=== PATIENT | male | born 1940 | race Caucasian/White ===

== ENCOUNTER 2020-11-25 17:11 | Emergency (ER) | payer OTHER ==
[~2020-11-25] VITALS: Ht 170.2 cm; Wt 99.8 kg
[~2020-11-25 17:11] MED LIST: CLONIDINE0.1 PO
[2020-11-25] MEDS ORDERED: HYDROCHLOROTHIAZIDE (17:33)
[2020-11-25] MEDS ORDERED: CARVEDILOL (17:33)
[2020-11-25] MEDS ORDERED: PROPAFENONE (17:33)
[2020-11-25] MEDS ORDERED: FLOMAX (17:34)
[2020-11-25] MEDS ORDERED: FUROSEMIDE (17:34)
[2020-11-25] MEDS ORDERED: CLONAZEPAM 0.50.5 M1 (17:37)
[2020-11-25] MEDS ORDERED: PARKINSON MED (17:38)
[2020-11-25 18:37] VITALS: BP 145/85
== END 2020-11-25 18:37 | disposition home or self-care (01) ==
LOC: M.ERS 17:11
DX: S00.12XA Contusion of left eyelid and periocular area, initial encounter (principal); G89.29 Other chronic pain; M25.511 Pain in right shoulder; I10 Essential (primary) hypertension; I48.91 Unspecified atrial fibrillation; E11.9 Type 2 diabetes mellitus without complications; Z79.899 Other long term (current) drug therapy; Z88.1 Allergy status to other antibiotic agents; Z88.8 Allergy status to other drugs, medicaments and biological substances; W19.XXXA Unspecified fall, initial encounter; Y93.89 Activity, other specified; Y92.89 Other specified places as the place of occurrence of the external cause; Y99.8 Other external cause status

== ENCOUNTER 2021-03-12 23:28 | Inpatient (IN) | payer OTHER ==
[~2021-03-12] VITALS: Ht 170.2 cm; Wt 113.6 kg
[~2021-03-12 23:28] MED LIST changes: +CARVEDILOL; +CLONAZEPAM 0.50.5 M1; +FLOMAX; +FUROSEMIDE; +HYDROCHLOROTHIAZIDE; +PARKINSON MED; +PROPAFENONE
[2021-03-12 23:31] VITALS: BP 126/44
[2021-03-12 23:55] LABS: ABSOLUTE BASOPHILS 0.1 thou/uL (0.0-0.2); ABSOLUTE EOSINOPHILS 0.1 thou/uL (0.0-0.7); ABSOLUTE LYMPHOCYTES 1.9 thou/uL (0.8-5.3); ABSOLUTE MONOCYTES 0.9 thou/uL (0.0-1.2); ABSOLUTE NEUTROPHILS 4.6 thou/uL (1.6-8.1); BASOPHILS 0.7 %; EOSINOPHILS 1.7 %; HEMATOCRIT 42.2 % (42.0-52.0); HEMOGLOBIN 13.1 gm/dL (14.0-18.0); LYMPHOCYTES 25.2 %; MCH 24.8 pg (26.0-34.0); MCHC 31.1 g/dL (28.0-37.0); MCV 79.8 fL (80.0-100.0); MONOCYTES 12.1 %; MPV 8.5 fl. (7.2-11.1); NUCLEATED RBCS 0 /100WBC; PLATELET COUNT* 206 thou/uL (150-400); POLYS 60.3 %; RBC 5.28 mil/uL (4.50-6.00); RDW-CV 18.3 % (10.5-14.5); WBC 7.6 thou/uL (4.0-11.0)
[2021-03-13] MEDS ORDERED: BIDIL TABLET1 EACH PO (00:02)
[2021-03-13] MEDS ORDERED: MIRAPEX 0.250.25 M1 PO (00:04)
[2021-03-13] MEDS ORDERED: VENLAFAXINE HCL75 M2 PO (00:04)
--- NOTE | 2021-03-13 00:05 | NUR ---
PATIENT'S STATES SHE GAVE HIM 30 UNITS OF LANTUS AND 25 UNITS OF NOVOLOG AT DINNER TIME. PRIOR TO CALLING EMS NOTED PATIENT BECAME ALTERED. TRIED TO GIVE PATIENT ORAL GLUCOSE WITHOUT SUCCESS. NOTED PATIENT LOST CONTROL OF BLADDER AND LOST VISION PRIOR TO CALLING EMS.
[2021-03-13 00:15] LABS: CALCIUM 7.6 mg/dL (8.5-10.1); CREATININE 1.8 mg/dL (0.6-1.3)
[2021-03-13 00:26] LABS: ALBUMIN 2.6 g/dL (3.4-5.0); MAGNESIUM 2.1 mg/dL (1.8-2.4); TOTAL BILIRUBIN 0.4 mg/dL (<0.1-1.0); TOTAL PROTEIN 6.3 g/dL (6.4-8.2)
[2021-03-13 00:33] LABS: BE -0.9 mmol/L (-2 to +3)
[2021-03-13 00:35] LABS: INFLUENZA A ANTIGEN Negative (Negative); INFLUENZA B ANTIGEN Negative (Negative)
[2021-03-13 00:35] LABS: pH 7.267 (7.340-7.450)
[2021-03-13 00:36] LABS: PCO2 61.4 mmHg (35.0-45.0); PO2 246.9 mmHg (75.0-100.0)
[2021-03-13 06:38] VITALS: BP 135/76
[2021-03-13 10:30] VITALS: BP 149/83
--- NOTE | 2021-03-13 10:37 | EKG ---
[place] [address] ELECTROCARDIOGRAM REPORT Name: BREANA ESTRADA Room: [place] [address] ADM IN M.R.#: [id number] Admission: 03/13/21 Attend Phys: Tony Bro Discharge: Date of : 44 Date of Service: 03/12/21 2345 Report #: [id number] THIS REPORT FOR: //name// [facility] ED Test Date: 2021-03-12 Test Time: 23:45:07 Pat Name: BREANA ESTRADA Department: Room: [facility] Gender: M Staff Technologist: JUAN : 1940 Requested By: Danna Brown Order Number: [id number] MD: Davin Valenzuela Measurements Intervals [place] Rate: 66 P: 36 OH: 238 QRS: -71 QRSD: 122 T: 91 QT: 446 QTc: 468 Interpretive Statements Sinus rhythm Prolonged OH interval Nonspecific IVCD with LAD LVH with secondary repolarization abnormality No previous ECG available for comparison Electronically Signed On 03-13-2021 10:37:31 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
[2021-03-13 11:09] LABS: BE -1.4 mmol/L (-2 to +3); PO2 91.6 mmHg (75.0-100.0)
[2021-03-13 11:13] LABS: PCO2 64.5 mmHg (35.0-45.0)
[2021-03-13 14:30] VITALS: BP 147/90
--- NOTE | 2021-03-13 14:42 | NUR ---
CM ASSESSMENT ASSESSMENT COMPLETED WITH PT (LYLY ESTRADA - [phone]). PT RESIDES WITH IN APARTMENT IN THE [facility]. PT USES A CANE AND PT COMPLETES ADLS FOR DRESSING AND BATHING. PT HAS NO HX OF SNF OR REHAB. PT HAD PAST HH WITH UNKNOWN AGENCY. PT WAS ON HOSPICE THREE YEARS AGO. PT'S STATES THE REASON FOR HOSPICE WAS NOT CLEAR AND HOSPICE WAS NOT NEEDED. PT REPORTS PT PLAN TO DC HOME WHEN MED CLEAR. CM TO FOLLOW.
[2021-03-13 15:26] LABS: URINE BILIRUBIN NEGATIVE (Negative); URINE BLOOD NEGATIVE (Negative); URINE CLARITY CLEAR; URINE COLOR YELLOW; URINE GLUCOSE-RANDOM NEGATIVE (Negative); URINE KETONES NEGATIVE (Negative); URINE LEUKOCYTES NEGATIVE (Negative); URINE NITRITE NEGATIVE (Negative); URINE PROTEIN 2+ (Negative); URINE SPECIFIC GRAVITY 1.025 (1.005-1.030); URINE UROBILINOGEN 0.2 E.U./dl (0.2-1.0)
[2021-03-13 15:37] LABS: BACTERIA 1-9 Few /HPF (None Seen); CRYSTALS None Seen /LPF (None Seen); HYALINE CASTS 0-3 Few /LPF (None Seen); SQUAMOUS 4-10 Moderate /LPF (0-3); URINE RBC 0-2 Rare /HPF (0-2); URINE WBC 0-5 Rare /HPF (0-5)
[2021-03-13 15:59] LABS: CREATININE 1.9 mg/dL (0.6-1.3); POTASSIUM 4.5 mmol/L (3.5-5.1)
[2021-03-13 16:02] LABS: MAGNESIUM 2.2 mg/dL (1.8-2.4); PHOSPHORUS* 5.4 mg/dL (2.5-4.9)
--- NOTE | 2021-03-13 16:04 | 2DMMODE ---
[place] [address] 2 D/M-MODE ECHOCARDIOGRAM Name: BREANA ESTRADA Room: [place] [address] ADM IN .R.#: [id number] Admission: 03/13/21 Attend Phys: Tony Bro Discharge: Date of : 44 Date of Service: 03/13/21 1604 Report #: [id number] THIS REPORT FOR: cc: FAM - No family physician/PCP FAM - No family physician/PCP Davin Valenzuela MD [facility] ~ ADDENDUM APPROVED REPORT Study performed: 03/13/2021 15:06:19 EXAM: Comprehensive 2D, Doppler, and color-flow Echocardiogram Patient Location: In-Patient Room #: er Status: routine BSA: 2.22 HR: 82 bpm BP: 133/78 mmHg Rhythm: NSR Other Information Study Quality: Good Indications Dyspnea 2D Dimensions IVSd: 12.22 (7-11mm) LVOT Diam: 22.41 (18-24mm) LVDd: 55.25 mm PWd: 11.06 (7-11mm) Ascending Ao: 34.17 (22-36mm) LVDs: 44.04 (25-40mm) Aortic Root: 34.77 mm Volumes Left Atrial Volume (Systole) LA ESV Index: 42.70 mL/m2 Aortic Valve AoV Peak Anthony.: 1.31 m/s AO Peak Gr.: 6.84 mmHg LVOT Max P.00 mmHg AO Mean Gr.: 3.56 mmHg LVOT Mean P.05 mmHg LVOT Max V: 0.71 m/s AO V2 VTI: 26.38 cm LVOT Mean V: 0.48 m/s ADAM (VTI): 2.44 cm2 LVOT V1 VTI: 16.32 cm AI [place]: 1.94 m/s2 [place] [address] 2 D/M-MODE ECHOCARDIOGRAM Name: BREANA ESTRADA Room: [address] IN .R.#: [id number] Admission: 03/13/21 Attend Phys: Tony Bro Discharge: Date of : 44 Date of Service: 03/13/21 1604 Report #: [id number] AI PHT: 526.07 ms Mitral Valve E/A Ratio: 1.28 MV Decel. Time: 209.27 ms MV E Max Anthony.: 0.69 m/s MV PHT: 60.69 ms MVA (PHT): 3.63 cm2 TDI E/Lateral E': 6.90 E/Medial E': 11.50 Medial E' Anthony.: 0.06 m/s Lateral E' Anthony.: 0.10 m/s Pulmonary Valve PV Peak Anthony.: 0.67 m/s PV Peak Gr.: 1.79 mmHg Tricuspid Valve RAP Estimate: 10.00 mmHg TR Peak Gr.: 40.60 mmHg RVSP: 50.00 mmHg PA Pressure: 50.00 mmHg Left Ventricle The left ventricle is normal size. There is global hypokinesis of the left ventricle. Mild concentric left ventricular hypertrophy. Left ventricular systolic function is moderately decreased. LVEF is 30-35%. The left ventricular diastolic function is normal. Right Ventricle Right ventricle is dilated. The right ventricular systolic function is normal. Atria Left atrium is moderately dilated. Right atrium is dilated. Aortic Valve The aortic valve is normal in structure. Mild aortic regurgitation. There is no aortic valvular stenosis. Mitral Valve The mitral valve is normal in structure. Trace mitral regurgitation. No evidence of mitral valve stenosis. Tricuspid Valve The tricuspid valve is normal in structure. Mild tricuspid regurgitation. estimated pa pressure 50 [place] [address] 2 D/M-MODE ECHOCARDIOGRAM Name: NATALIEBEVERLYO Clarisse Room: [address] IN [facility]#: [id number] Admission: 03/13/21 Attend Phys: Tony Bro Discharge: Date of : 44 Date of Service: 03/13/21 1604 Report #: [id number] Pulmonic Valve The pulmonary valve is normal in structure. Mild pulmonic regurgitation. Great Vessels The aortic root is normal in size. The IVC is dilated. Pericardium There is no pericardial effusion. <Conclusion> Mild concentric left ventricular hypertrophy. LVEF is 30-35%. There is global hypokinesis of the left ventricle. Left atrium is moderately dilated. Mild aortic regurgitation. Right ventricle is dilated. Mild tricuspid regurgitation. estimated pa pressure 50 mm Hg <ELECTRONICALLY SIGNED> By: Davin Valenzuela MD, FACC 03/13/21 1604 1604 1604 Davin Valenzuela MD, FACC /INF
[2021-03-13 21:38] VITALS: BP 145/64
[2021-03-13 23:00] VITALS: BP 134/78
[2021-03-14 00:19] VITALS: BP 126/74
[2021-03-14 05:07] VITALS: BP 119/62
[2021-03-14 05:27] LABS: HEMATOCRIT 43.3 % (42.0-52.0); HEMOGLOBIN 13.1 gm/dL (14.0-18.0); MCH 24.4 pg (26.0-34.0); MCHC 30.2 g/dL (28.0-37.0); MCV 80.9 fL (80.0-100.0); MPV 8.7 fl. (7.2-11.1); NUCLEATED RBCS 0 /100WBC; PLATELET COUNT* 207 thou/uL (150-400); RBC 5.35 mil/uL (4.50-6.00); RDW-CV 18.2 % (10.5-14.5); WBC 7.9 thou/uL (4.0-11.0)
[2021-03-14 06:04] LABS: ALBUMIN 2.5 g/dL (3.4-5.0); CALCIUM 7.7 mg/dL (8.5-10.1); CREATININE 1.8 mg/dL (0.6-1.3); MAGNESIUM 2.2 mg/dL (1.8-2.4); POTASSIUM 5.2 mmol/L (3.5-5.1); TOTAL BILIRUBIN 0.3 mg/dL (<0.1-1.0); TOTAL PROTEIN 6.3 g/dL (6.4-8.2)
--- NOTE | 2021-03-14 07:30 | NUR ---
PATIENT ARRIVED ON FLOOR FROM ER AT ABOUT 2200. PATIENT ADMISSION HISTORY AND ASSESSMENT WAS COMPLETED CHARTED. D5 NS CONTINUES AT 50 ML/HR. IV ANTIBIOTICS WERE GIVEN ORDERED. PATIENT ONLY WORE BIPAP FOR A COUPLE HOURS KEPT TAKING OFF WAS PLACED BACK ON OXYGEN AT 10L [facility]. WILL CONTINUE TO MONITOR.
[2021-03-14 08:00] VITALS: BP 153/76
[2021-03-14 08:08] LABS: ABSOLUTE EOSINOPHILS 0.1 thou/uL (0.0-0.7); ABSOLUTE LYMPHOCYTES 0.3 thou/uL (0.8-5.3); ABSOLUTE MONOCYTES 0.1 thou/uL (0.0-1.2); ABSOLUTE NEUTROPHILS 7.4 thou/uL (1.6-8.1); ANISOCYTOSIS 1+; HYPOCHROMASIA 1+; PLATELET ESTIMATE ADEQUATE
[2021-03-14 08:29] LABS: pH 7.247 (7.340-7.450)
[2021-03-14 08:41] LABS: BE -0.7 mmol/L (-2 to +3); PO2 123.2 mmHg (75.0-100.0)
[2021-03-14 08:52] LABS: PCO2 58.7 mmHg (35.0-45.0); pH 7.284 (7.340-7.450)
[2021-03-14 13:29] VITALS: BP 136/71
[2021-03-14 16:48] LABS: ALBUMIN 2.6 g/dL (3.4-5.0); CALCIUM 7.8 mg/dL (8.5-10.1); CREATININE 1.8 mg/dL (0.6-1.3); POTASSIUM 4.8 mmol/L (3.5-5.1); TOTAL BILIRUBIN 0.3 mg/dL (<0.1-1.0); TOTAL PROTEIN 6.5 g/dL (6.4-8.2)
[2021-03-14 17:03] VITALS: BP 130/69
[2021-03-14 19:25] VITALS: BP 145/87
[2021-03-15 00:50] VITALS: BP 136/60
[2021-03-15 04:00] VITALS: BP 128/55
[2021-03-15 05:29] LABS: ABSOLUTE LYMPHOCYTES 0.8 thou/uL (0.8-5.3); ABSOLUTE MONOCYTES 0.2 thou/uL (0.0-1.2); ABSOLUTE NEUTROPHILS 8.6 thou/uL (1.6-8.1); BASOPHILS 0.1 %; HEMATOCRIT 41.2 % (42.0-52.0); HEMOGLOBIN 12.8 gm/dL (14.0-18.0); LYMPHOCYTES 8.1 %; MCH 24.6 pg (26.0-34.0); MCHC 30.9 g/dL (28.0-37.0); MCV 79.6 fL (80.0-100.0); MONOCYTES 2.2 %; MPV 8.7 fl. (7.2-11.1); NUCLEATED RBCS 0 /100WBC; PLATELET COUNT* 201 thou/uL (150-400); POLYS 89.6 %; RBC 5.18 mil/uL (4.50-6.00); RDW-CV 17.6 % (10.5-14.5); WBC 9.6 thou/uL (4.0-11.0)
[2021-03-15 06:15] LABS: ALBUMIN 2.7 g/dL (3.4-5.0); CALCIUM 8.1 mg/dL (8.5-10.1); CREATININE 1.7 mg/dL (0.6-1.3); MAGNESIUM 2.2 mg/dL (1.8-2.4); POTASSIUM 5.1 mmol/L (3.5-5.1); TOTAL BILIRUBIN 0.4 mg/dL (<0.1-1.0); TOTAL PROTEIN 6.5 g/dL (6.4-8.2)
[2021-03-15 08:25] VITALS: BP 166/85
[2021-03-15] MEDS ORDERED: LISINOPRIL5 MG PO (10:06)
[2021-03-15] MEDS ORDERED: FLOMAX0.4 MG PO (10:06)
[2021-03-15] MEDS ORDERED: PREDNISONE 10 M10 MG PO (10:06)
[2021-03-15] MEDS ORDERED: CARVEDILOL3.125 MG PO (10:06)
[2021-03-15] MEDS ORDERED: LASIX 40 MG TAB40 MG PO (10:06)
[2021-03-15] MEDS ORDERED: DOXYCYCLINE 10100 MG PO (10:06)
[2021-03-15 11:52] VITALS: BP 132/89
--- NOTE | 2021-03-15 13:48 | NUR ---
Hospitalist reports that the Pulmonolgist is recommeding a Trilogy. Hospitalist signed Script and this was faxed to [facility]. Holly from [facility] called back to report further documentation needed as to why pt needs the Trilogy. Pulmonolgist consult is still in draft and no progress notes available today. Waiting to see if further documentation is written by doctor's for need for Trilogy and will fax to [facility]. Met with pt to discuss need for Trilogy and he is agreeable. CM to continue to follow for discharge today.
[2021-03-15 15:34] VITALS: BP 159/96
[2021-03-15 19:50] VITALS: BP 127/64
--- NOTE | 2021-03-15 20:02 | CON ---
[address] [address] CONSULTATION Name: BREANA ESTRADA Room: [address] IN M.R.#: [id number] Admission: 03/13/21 Attend Phys: Kwan Spencer Discharge: Date of : 44 Report #: [id number] THIS REPORT FOR: cc: ASHOK - No family physician/PCP FAM - No family physician/PCP Denny Bowie MD ~ DATE OF CONSULTATION: 03/13/2021 INDICATION FOR CONSULTATION: Acute hypercarbic respiratory failure. HISTORY OF PRESENT ILLNESS: This is a 81-year-old gentleman. It appears that he has a previous history of asthma as well as obstructive sleep apnea and atrial fibrillation. 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 He is a limited historian. He did give me a history consistent with asthma as well as obstructive sleep apnea, but did not state that he has either one of these two diseases. He also has diabetes. He is now admitted with shortness of breath. He also initially was hypoglycemic with a blood glucose of only 36. He had altered mental status as well. He had to be placed on a BiPAP. He has been maintaining O2 saturation with 50% BiPAP; however, his pH has remained low at 7.247 and pCO2 of 65. With 50% BiPAP in place, he still had adequate O2 saturation. He has now been placed on a high-flow nasal cannula. So far, he is awake and he is maintaining O2 saturation on this. He only has a small amount of sputum production, clear to white clear nasal discharge, which is longstanding. He does have swelling of lower extremities. He does have some leg pain as well. REVIEW OF SYSTEMS: For 12 points is negative except as mentioned above. PAST MEDICAL HISTORY: He gives a history consistent with bronchial asthma including treatment for bronchial asthma, he did not, however, state that he has asthma; he also states that he has used a CPAP or BiPAP at home, but did not state that he has sleep apnea; hypertension; atrial fibrillation; diabetes. The patient stated that he had anterior abdominal wall bleed because of which his anticoagulation was discontinued in the past, although he has AFib. His echo now shows a left ventricular ejection fraction of only 30-35% with a pulmonary artery systolic of 50. It is not known to me as to whether this congestive heart failure is new or old. I do not have his baseline creatinine available. SOCIAL HISTORY: The patient states that he smoked when he was in his teens. Otherwise, he has been a lifetime nonsmoker. No known history of heavy alcohol use or illegal drug use. CURRENT MEDICATIONS: [place] [employer] [address] CONSULTATION Name: BREANA ESTRADA Room: [address] IN .R.#: [id number] Admission: 03/13/21 Attend Phys: Kwan Spencer Discharge: Date of : 44 Report #: [id number] HOME MEDICATIONS: List in [facility] reviewed. Also, he says that he takes insulin at home. VACCINATION HISTORY: He received 2 doses of COVID-19 vaccine, did not receive the booster. This was back in May. ALLERGIES: METFORMIN, BENICAR AND CELEBREX ARE MENTIONED ALLERGIES. FAMILY HISTORY: No pertinent family history. PHYSICAL EXAMINATION: GENERAL: He is alert, awake and oriented, provides limited history. VITAL SIGNS: In the records reviewed. NECK: Does not show raised JVP. CHEST: Breath sounds bilaterally equal, decreased expirations, prolonged expiratory wheezes. HEART: Irregular. No murmur. ABDOMEN: Soft and nontender. EXTREMITIES: Lower extremities, 2+ edema, no calf tenderness. Chest x-ray, CT chest, CT head and lab work in [facility] reviewed. ASSESSMENT AND PLAN: 1. Acute hypoxemic and hypercarbic respiratory failure. His history is consistent with long history of bronchial asthma as well as obstructive sleep apnea, although he did not state either one of these diagnoses. He also is in heart failure and renal failure at this point, not known to me as to whether these are old or new. For now, recommend keeping him on a BiPAP while asleep and use BiPAP as needed while awake. I understand the patient has had trouble with BiPAP or CPAP at home in the past. 2. Bronchial asthma exacerbation. We will start him on Solu-Medrol as well as nebulized bronchodilators. 3. Systolic congestive heart failure, acute versus chronic with renal failure, creatinine 1.8-1.9, unknown whether new or old. He is total body fluid overloaded. He currently has IV fluids running at 50. If the creatinine elevation is new and fluids are needed to maintain renal perfusion, then it appears okay to continue for now. Otherwise, considering that he is overall total body fluid overloaded, may consider discontinuing. May benefit from a Cardiology opinion and may need a Nephrology opinion as well if he fails to improve. I will do a renal ultrasound to rule out urinary tract obstruction. 4. Diabetes with hypoglycemia and hyperglycemia. Blood glucose management deferred to the primary service. 5. Pulmonary infiltrates. Agree with doxycycline and ceftriaxone. We will [address] [place] [address] CONSULTATION Name: BREANA ESTRADA Room: [address] IN [facility]#: [id number] Admission: 03/13/21 Attend Phys: Kwan Spencer Discharge: Date of : 44 Report #: [id number] send off some cultures. 6. Evaluation for thromboembolic phenomena/pulmonary hypertension. Pulmonary hypertension is likely secondary to congestive heart failure. Also, he may have respiratory disease as well as above. His D-dimer is only 0.63. Therefore, my suspicion of pulmonary emboli is low and I am not investigating this at this time; however, I would want to do venous Dopplers. 7. Deep venous thrombosis prophylaxis/history of atrial fibrillation. He reports anterior abdominal wall bleeding in the past with anticoagulation. In the short run, it appears that he would benefit from anticoagulation at least while he is in the hospital here. Subcutaneous heparin or Lovenox may in fact have a higher risk of causing a recurrence of anterior abdominal wall bleeding compared with Eliquis. Therefore, if all on the case agree, then I would be inclined to start him on low-dose Eliquis. 8. Gastrointestinal prophylaxis, Protonix. 9. Clostridium difficile prophylaxis, Lactinex. Thanks for this consultation. <ELECTRONICALLY SIGNED> By: Denny Bowie MD 03/15/212001 1746 2209Aradha Bowie MD /nt
[2021-03-16] VITALS: BP 140/79
--- NOTE | 2021-03-16 03:58 | NUR ---
ASSUMED CARE OF PT A 1899. PT IS ALERT AND ORIENTED. VSS. PERRLA. NO COMPLAINS OF PAIN. PT IS IN SINUS RYHTHM ON THE MONITOR. PT IS SLEEPING QUIETLY IN BED. RESPIRATIONS ARE EVEN AND NONLABORED. WILL CONTINUE TO MONITOR PT.
[2021-03-16 04:00] VITALS: BP 139/66
[2021-03-16 04:59] LABS: ALBUMIN 2.8 g/dL (3.4-5.0); ALKALINE PHOSPHATASE 92 U/L (46-116); ANION GAP 6 mmol/L (7-16); BUN 43 mg/dL (7-18); CALCIUM 8.6 mg/dL (8.5-10.1); CHLORIDE 99 mmol/L (98-107); CHOLESTEROL 98 mg/dL (<200); CO2 33 mmol/L (21-32); CREATININE 1.7 mg/dL (0.6-1.3); GLUCOSE 196 mg/dL (70-99); HDL CHOLESTEROL 57 mg/dL (>40); LDL CHOLESTEROL 26 mg/dL (<100); MAGNESIUM 2.2 mg/dL (1.8-2.4); POTASSIUM 4.4 mmol/L (3.5-5.1); SGOT 50 U/L (15-37); SGPT 59 U/L (30-65); SODIUM 138 mmol/L (136-145); TC:HDL 1.7 Ratio (Not establshd); TOTAL BILIRUBIN 0.8 mg/dL (<0.1-1.0); TOTAL PROTEIN 6.6 g/dL (6.4-8.2); TRIGLYCERIDE 75 mg/dL (<150); VLDL 15 mg/dL (<40)
[2021-03-16 05:08] LABS: SERUM ASSESSMENT CLEAR
[2021-03-16 06:53] LABS: ABSOLUTE LYMPHOCYTES 0.8 thou/uL (0.8-5.3); ABSOLUTE MONOCYTES 0.2 thou/uL (0.0-1.2); ABSOLUTE NEUTROPHILS 8.1 thou/uL (1.6-8.1); EOSINOPHILS 0.1 %; HEMATOCRIT 42.9 % (42.0-52.0); HEMOGLOBIN 13.3 gm/dL (14.0-18.0); MCH 24.5 pg (26.0-34.0); MCHC 31.1 g/dL (28.0-37.0); MCV 78.8 fL (80.0-100.0); MONOCYTES 2.4 %; MPV 9.2 fl. (7.2-11.1); NUCLEATED RBCS 0 /100WBC; PLATELET COUNT* 212 thou/uL (150-400); POLYS 88.5 %; RBC 5.45 mil/uL (4.50-6.00); RDW-CV 18.1 % (10.5-14.5); WBC 9.1 thou/uL (4.0-11.0)
[2021-03-16 08:22] LABS: pH 7.404 (7.340-7.450)
[2021-03-16 08:32] LABS: PCO2 52.9 mmHg (35.0-45.0)
[2021-03-16 08:33] LABS: PO2 58.5 mmHg (75.0-100.0)
[2021-03-16 08:37] VITALS: BP 169/96
[2021-03-16 13:39] VITALS: BP 169/96
[2021-03-16 13:53] VITALS: BP 158/88
--- NOTE | 2021-03-16 14:38 | CON ---
[address] [address] CONSULTATION Name: BREANA ESTRADA Room: [address] IN M.R.#: [id number] Admission: 03/13/21 Attend Phys: Kwan Spencer Discharge: Date of : 44 Report #: [id number] THIS REPORT FOR: cc: ASHOK - No family physician/PCP FAM - No family physician/PCP Davin Valenzuela MD [facility] ~ cc: Bharat Rutherford MD DATE OF CONSULTATION: 03/15/2021 CARDIOLOGY CONSULTATION HISTORY OF PRESENT ILLNESS: The patient is a 81-year-old male who I was asked to see in the hospital today because of shortness of breath. The patient states that he has seen a fast food manager in the past because of an irregular heartbeat. He is not very active this time and uses a cane. He has fallen in the past because of poor balance. He has never been admitted here to [facility] in the past. He was brought to the Emergency Room 2 nights ago by ambulance. His called EMS because he was short of breath. Apparently, his blood sugar was only 36. The patient was confused and was placed on BiPAP. He apparently did take his insulin earlier that evening. He did complain of weakness. He apparently does have a history of atrial fibrillation. He had been on blood thinners in the past, but was stopped because of bleeding. Cardiology consultation was requested because of his history of heart disease. He denies the history of chest pain. He has been short of breath recently and cough. He does have occasional lower extremity edema. He denies any recent syncope, fever. PAST MEDICAL HISTORY: He has had previous foot surgery, hernia repair, vasectomy. He has a history of hypertension, diabetes, Parkinson's disease. MEDICATIONS: On admission, carvedilol, hydrochlorothiazide, Flomax, clonazepam, he is on Parkinson medication, Imdur, Mirapex, venlafaxine. He is no longer on Lasix. ALLERGIES: HE HAS INTOLERANCE TO METFORMIN AND BENICAR. FAMILY HISTORY: Negative for heart disease. SOCIAL HISTORY: He is . 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 No smoking, alcohol abuse. REVIEW OF SYSTEMS: No history of stroke. He does have asthma and uses inhaler. He is on oxygen at home. No history of GI bleeding, liver disease, kidney disease, cancer, psychiatric illness, [place] [address] CONSULTATION Name: NATALIEBREANA S Room: [address]#: [id number] Admission: 03/13/21 Attend Phys: Kwan Spencer Discharge: Date of : 44 Report #: [id number] PHYSICAL EXAMINATION: GENERAL: Revealed an overweight male, lying in bed, he appeared in no acute distress. VITAL SIGNS: He had a blood pressure of 140/80, pulse 90. He was afebrile. HEENT: He was anicteric. Conjunctivae pink. Mucous membranes appear dry. NECK: Veins do not appear distended. CHEST: Revealed decreased breath sounds at the bases. CARDIAC: Regular rate and rhythm. No significant murmur. ABDOMEN: Obese. EXTREMITIES: He had trace edema. Dorsalis pedis pulse 2+ bilaterally. SKIN: Cool and dry. NEUROLOGIC: Nonfocal. LABORATORY DATA: His ECG on admission showed a sinus rhythm with left anterior fascicular block, nonspecific T-wave changes. On the monitor since his admission, he has occasional PVC. His workup, he actually had an echocardiogram performed on admission that showed ejection fraction of only 35%, left ventricular hypertrophy, left atrial enlargement, mild aortic insufficiency, mild pulmonary hypertension. X-rays, the patient had a portable chest x-ray on admission that showed normal heart size and clear lung bateman, atelectasis. He had CT scan of the head performed on admission because of confusion, which showed volume loss. He had a CT scan of the chest on admission that showed pulmonary congestion, vascular prominence, mild cardiomegaly. Venous duplex scan showed no DVT. Renal ultrasound showed no evidence of hydronephrosis or kidney stones. His lab work, potassium 5.1, BUN 39, creatinine 1.9. Liver function studies were normal. Albumin 2.7. High sensitivity troponin 32. BNP on admission 1663. Hemoglobin A1c was 9. Hematocrit 41.2. His COVID antigen stat test on admission was negative. Urinalysis: 2+ protein. IMPRESSION AND RECOMMENDATIONS: 1. History of atrial fibrillation. Currently in sinus rhythm. 2. Dilated cardiomyopathy, reason unclear. The patient has been on a beta-leopoldo and nitrates. I would not recommend an WAI inhibitor, ARB or Aldactone because of chronic kidney disease. Blood pressure is elevated. I would consider adding hydralazine. 3. Confusion. Suspect secondary to hypoglycemia. 4. Obesity. 5. Diabetes. Appears out of control. 6. Hypertension. The patient is on a beta-leopoldo. <ELECTRONICALLY SIGNED> By: Davin Valenzuela MD, [facility] 03/16/21 1438 1020 1041Dcarlos alberto Valenzuela MD, FACC /nt
--- NOTE | 2021-03-16 15:20 | NUR ---
ASSUMED PT CARE AT 0730. ASSESSMENT COMPLETED, PT IS A&OX4 AND FORGETFUL AT TIMES. PT EDUCATED ON THE IMPORTANCE OF COMPLIANCE WITH THE BIPAP AND PT COONTINUES TO REFUSE TO WEAR IT. IN ROOM AND SAID SHE WILL ENCOURAGE IT AT HOME. MEDICATIONS ADMINISTERED ORDERED. NEW ORDER TO DISCHARGE TO HOME. 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 ALL BELONGINGS WITH PT. HEART MONITOR REMOVED AND IV DC'D. PT DISHARGED WITH AT APPROX 1500.
--- NOTE | 2021-03-16 16:55 | NUR ---
PLAN FOR THE PT TO D/C HOME TODAY WITH [facility] AND TRILOGY THAT WAS DELIVERED BY [facility]. [facility] WILL CONTACT THE PATIENT TO ARRANGE A TIME TO VISIT. NO OTHER CM D/C PLANNING NEEDS ANTICIPATED. CM WILL REMAIN AVAILABLE TO ASSIST AND FOLLOW NEEDED.
[2021-03-16 21:06] LABS: MYCOPLASMA PNEUMONIA IgG 1118 U/mL (0-99); MYCOPLASMA PNEUMONIA IgM <770 U/mL (0-769)
== END 2021-03-16 15:27 | disposition home health service (06) | DRG 637 ==
LOC: M.ERS 23:28 → M.TBA-ER 03-13 02:33 → M.2W 03-13 21:42
PROVIDERS: Emergency Medicine; Internal Medicine; Internal Medicine Cardiovascular Disease; Internal Medicine Critical Care Medicine; ADMIT Internal Medicine; ATTEND Internal Medicine
DX: E11.649 Type 2 diabetes mellitus with hypoglycemia without coma (principal); G93.41 Metabolic encephalopathy; J96.02 Acute respiratory failure with hypercapnia; J96.01 Acute respiratory failure with hypoxia; I50.21 Acute systolic (congestive) heart failure; I13.0 Hypertensive heart and chronic kidney disease with heart failure and stage 1 through stage 4 chronic kidney disease, or unspecified chronic kidney disease; J45.901 Unspecified asthma with (acute) exacerbation; I42.0 Dilated cardiomyopathy; N17.0 Acute kidney failure with tubular necrosis; E11.65 Type 2 diabetes mellitus with hyperglycemia; L83 Acanthosis nigricans; I27.20 Pulmonary hypertension, unspecified; J44.9 Chronic obstructive pulmonary disease, unspecified; E11.22 Type 2 diabetes mellitus with diabetic chronic kidney disease; E87.70 Fluid overload, unspecified; G20 Parkinson's disease; E66.01 Morbid (severe) obesity due to excess calories; N18.9 Chronic kidney disease, unspecified; I48.91 Unspecified atrial fibrillation; Z20.822 Contact with and (suspected) exposure to COVID-19; Z79.899 Other long term (current) drug therapy; Z88.6 Allergy status to analgesic agent; Z88.8 Allergy status to other drugs, medicaments and biological substances; Z87.891 Personal history of nicotine dependence; Z68.39 Body mass index [BMI] 39.0-39.9, adult